=== PATIENT | male | born 1995 | race Caucasian/White ===

== ENCOUNTER 2016-06-22 05:07 | Inpatient (IN) | payer OTHER ==
--- NOTE | ~2016-06-22 | PA ---
Unit #: [id number] #: [id number] Patient: BHARTI HUANG [id number] [facility] [address] [place] [address] [id number] MR#: [id number] NAME: BHARTI HUANG. ROOM: P206 Age: 21 Sex: M Admission Date: 06/22/2016 : 1995 Date of Assessment: 06/22/2016 Attending Physician: Savita Martinez M.D. Admitting Physician: Savita Martinez M.D. Primary Care Physician: Generic Doctor Not In System PSYCHIATRIC ASSESSMENT DATE OF SERVICE 06/22/2016. IDENTIFYING DATA Mr. Huang is a 21-year-old single, transgender male himself as a female and was directly admitted to us from [place], [place]. CHIEF COMPLAINT Suicidal ideation and "I've a plan to kill myself." HISTORY OF PRESENT ILLNESS Mr. Huang is a 21-year-old transgender female with history of bipolar disorder, who was taken to the [place], [place] where initial assessment was completed. Upon presentation to the hospital, the patient stated that she has been depressed and has been having suicidal thoughts and has a plan to kill herself and "I've a history of mental disorders and suicide attempt and my plan to take sleeping pills and have them at home." She told her father that she needed to be taken to the emergency room and that she has been just really depressed. "I'm in one of my lows in the past 3 weeks and it has gotten worse." She was seen to be danger to self and as such, was medically cleared from the emergency room and then transferred to us. SUBSTANCE ABUSE HISTORY The patient denies any history of alcohol or drug. PAST PSYCHIATRIC HISTORY The patient has had history of inpatient psychiatric hospitalization at [facility] and review of the medical records indicate that currently she has not been seeing a psychiatrist, and has been diagnosed and treated for bipolar disorder, and has been on combination of psychotropic medications. PAST MEDICAL HISTORY The patient's medical history is insignificant. ALLERGIES Penicillin. PERSONAL AND SOCIAL HISTORY A 21-year-old transgender female who reports that she lives at home with her father and stepmother and has fairly decent social support system. Unit #: [id number] #: [id number] Patient: BHARTI HUANG MENTAL STATUS EXAMINATION Young white female who was casually dressed with fair personal hygiene, appears to be in no acute distress or discomfort. She was awake and alert on interaction with intact orientation to time, place, and person. Her mood was anxious and depressed with a congruent affect. Her speech was slow and restricted in content. Her thought processes were disorganized with some looseness of associations and suicidal ideations. Her insight and judgment remain significantly impaired. DIAGNOSTIC IMPRESSION Psychiatric: Bipolar disorder, most recent episode depressed, recurrent, moderate, without psychotic features. Medical: None. Stressors: Moderate psychosocial stressors. TREATMENT PLAN 1. The patient has presented with history of mood disorder and has been decompensating and will need inpatient hospitalization for safety and stabilization. We will start her back on her home medications. We will adjust the medications and monitor response. 2. Supportive therapy was provided to the patient. 3. Safe, structured, and nourishing environment will be provided. ESTIMATED LENGTH OF STAY 5 to 7 days. ABILITY TO HELP SELF Limited. WILLINGNESS TO HELP SELF The patient appears to be willing to help self. STRENGTHS 1. Communicative. 2. Cooperative. PROBLEMS 1. Chronic dysphoric symptoms. 2. Poor social support system. DISCHARGE CRITERIA This will be contingent upon the patient's ability to show of her depression and anxiety, and her ability to stay safe to herself, particularly after discharge from the hospital. Dictated by... Dez Rob/charles TD: 06/22/2016 16:29 JOB #: [id number] Unit #: [id number] #: [id number] Patient: BHARTI HUANG PSYCHIATRIC ASSESSMENT Page 1 of 1 X Savita Martinez MD X PSYCHIATRIC ASSESSMENT
--- NOTE | ~2016-06-22 | PN ---
Unit #: [id number] #: [id number] Patient: BHARTI HUANG [id number] [facility] [address] [place] [address] [id number] I MR#: [id number] NAME: BHARTI HUANG. ROOM: P206 Age: 21 Sex: M Admission Date: 06/22/2016 : 1995 Attending Physician: Savita Martinez M.D. Admitting Physician: Savita Martinez M.D. Primary Care Physician: Sharad Doctor Not In System [facility] PROGRESS NOTES DATE OF SERVICE: 06/22/2016 SUBJECTIVE Mr. Huang is a 21-year-old transgender female who was seen today and chart was reviewed, and case was discussed with the staff. He has been anxious, withdrawn, and rather seclusive to himself and has been hardly getting up , coming out, communicating, interacting, and participating in treatment-related activities. He does not really appear to be very much motivated towards treatment as evidenced by him not really investing in treatment recommendation. MENTAL STATUS EXAMINATION Young white male who was casually dressed with fair personal hygiene, appears to be in no acute distress or discomfort. He was awake and alert on interaction with intact orientation. His mood was anxious with a congruent affect. He denies any suicidal or homicidal ideations. His insight and judgment remain significantly impaired. TREATMENT PLAN 1. We will continue him on his current medications and treatment protocol. We will monitor his response to medications and make further adjustments as needed. 2. We will continue to follow up. Dictated by... Dez Rob/charles TD: 06/24/2016 21:30 JOB #: [id number] Unit #: [id number] #: [id number] Patient: BHARTI HUANG PROGRESS NOTES Page 1 of 1 X Savita Martinez MD PROGRESS NOTE
--- NOTE | ~2016-06-22 | HP ---
Unit #: [id number] #: [id number] Patient: BHARTI ROCKWELL [id number] [place] [address] [id number] I MR#: [id number] NAME: BHARTI ROCKWELL. ROOM: P206 Age: 21 Sex: M Admission Date: 06/22/2016 : 1995 Attending Physician: Savita Martinez M.D. Admitting Physician: Savita Martinez M.D. Primary Care Physician: Generic Doctor Not In System HISTORY AND PHYSICAL HISTORY OF PRESENT ILLNESS The patient is a 21-year-old male admitted to [address] [place] [address] on 06/22/2016 for suicidal ideation. PAST MEDICAL HISTORY Obesity. PAST SURGICAL HISTORY 1. Left knee. 2. Finger. ALLERGIES Penicillin. SOCIAL HISTORY He is a biological male but identifies as female. He is disabled, lives with father and stepmother. Denies alcohol, tobacco and drug use. FAMILY HISTORY Noncontributory. REVIEW OF SYSTEMS CONSTITUTIONAL: No fever or chills. HEENT: Denies any sore throat, ear pain or runny nose. CARDIOVASCULAR: Denies chest pain, irregular heart rhythm or palpitations. CHEST: Denies shortness of breath or cough. No hemoptysis. GASTROINTESTINAL: Denies nausea, vomiting, diarrhea or chronic constipation. ENDOCRINE: Denies history of increased thirst or urination. No recent significant weight loss or gain. GENITOURINARY: Denies dysuria, frequency, or hematuria. SKIN: Denies any rashes. HEMATOLOGIC: Denies history of increased bleeding or bruising. MUSCULOSKELETAL: Denies any hot, swollen joints. No generalized muscle pain. NEUROLOGIC: Denies problems with vision or speech. No frequent, severe headaches. No numbness, tingling or weakness in any extremities. Denies loss of bladder or bowel control. CURRENT MEDICATIONS 1. Tenex. 2. Klonopin. 3. Winlock. Unit #: [id number] #: [id number] Patient: BHARTI ROCKWELL 4. Depakote. 5. Geodon. 6. Doxepin. 7. Proventil. PHYSICAL EXAMINATION GENERAL: He is awake, alert, oriented, in no acute distress. VITAL SIGNS: Temperature 97.9, heart rate 93, respirations 18, blood pressure 126/79. SKIN: Warm and dry without rash or lesion. HEENT: Normocephalic. TMs not viewed. Oral and nasal passages clear. Conjunctivae clear. PERRLA. EOMs intact. NECK: Supple without lymphadenopathy or thyromegaly. HEART: Regular rate and rhythm without murmur. LUNGS: Clear. ABDOMEN: Soft, nontender. : Not done. EXTREMITIES: No evidence of cyanosis, clubbing or edema. Moves all without focal deficit. NEUROLOGICAL: Grossly within normal limits. Cranial Nerves: II: Visual frank are intact. III, IV AND : Extraocular movements are intact. Pupils are equal, round and reactive to light. V: Facial sensation is grossly normal. VII: Facial movements and expression are normal. VIII: Auditory acuity grossly intact. IX, X: Uvula is midline. Phonation is normal. XI: Patient shrugs shoulders and turns head normally. XII: Tongue protrudes in the midline. Sensory and Motor Function: Sensory and motor sensation is grossly normal. Motor: moves all extremities well. Coordination: Gait is normal. Deep Tendon Reflexes: Intact. IMPRESSION 1. Psychiatric admission. 2. Obesity. RECOMMENDATIONS PSYCHIATRIC: Per psychiatrist. MEDICAL: No contraindications to participate in facility's activities. MEDICAL PROGNOSIS Good. MEDICAL CONDITION Stable. Dictated by... Oswaldo Mcclure/elaina TD: 06/22/2016 20:50 JOB #: [id number] Unit #: [id number] #: [id number] Patient: BHARTI ROCKWELL HISTORY AND PHYSICAL Page 1 of 1 X RADHA EM APRN HISTORY AND PHYSICAL
--- NOTE | ~2016-06-22 | DS ---
Unit #: [id number] #: [id number] [facility]: [facility]WELL [id number] [facility] [address] [place] [address] [id number] I MR#: [id number] NAME: BHARTI ROCKWELL ROOM: P206 Age: 21 Sex: M Admission Date: 06/22/2016 : 1995 Discharge Date: 06/25/2016 Attending Physician: Savita Martinez M.D. Primary Care Physician: Generic Doctor Not In System DISCHARGE SUMMARY IDENTIFYING DATA Mr. Rockwell is a 21-year-old single transgender male, who identifying himself as a female and was directly transferred to us from [place], [place]. DISCHARGE DIAGNOSES Psychiatric: Bipolar disorder, most recent episode depressed, recurrent, moderate, without psychotic features. Medical: None. Stressors: Moderate psychosocial stressors. HISTORY OF PRESENT ILLNESS Please see initial psychiatric evaluation for details. PAST PSYCHIATRIC HISTORY Please see initial psychiatric evaluation for details. PAST MEDICAL HISTORY Please see initial psychiatric evaluation for details. HOSPITAL COURSE The patient was admitted to the adult psychiatric unit at [facility] and was oriented to the hospital environment. Routine p.r.n. medications were initiated and he was started back on his home medications and medications were adjusted, and Depakote and lithium were maintained and Geodon was increased to 60 mg b.i.d. with good tolerability and therapeutic response. He was seen to be rather very seclusive to himself, though was calm and cooperative and was taking medications regularly and it appears that his Depakote and lithium level were both low as lithium level of 0.2 and Depakote level of 27 indicating that he was noncompliant with medications and medication therefore restarted and he was able to show a decent therapeutic response with improvement in depression and anxiety and was willing to continue treatment on an outpatient basis and as such, it was decided that he will be discharged home and will continue treatment on an outpatient basis. DISCHARGE MEDICATIONS Geodon 60 mg b.i.d. for bipolar, Depakote 500 mg in the morning and 1000 mg at bedtime for bipolar, Eskalith CR 450 mg b.i.d. for bipolar. DISCHARGE CONDITION Stable. PROGNOSIS Unit #: [id number] #: [id number] Patient: BHARTI ROCKWELL. Dictated by... Dez Rob/charles TD: 06/25/2016 07:29 JOB #: [id number] DISCHARGE SUMMARY Page 1 of 1 X Savita Martinez MD X DISCHARGE SUMMARY
--- NOTE | ~2016-06-22 | PN ---
Unit #: [id number] #: [id number] Patient: BHARTI HUANG [id number] [facility] [address] [place] [address] [id number] MR#: [id number] NAME: BHARTI HUANG. ROOM: P206 Age: 21 Sex: M Admission Date: 06/22/2016 : 1995 Attending Physician: Savita Martinez M.D. Admitting Physician: Savita Martinez M.D. Primary Care Physician: Sharad Doctor Not In System [facility] PROGRESS NOTES DATE June 23, 2016 DISCUSSION Mr. Huang is a 21-year-old transgender male, who was seen today and chart was reviewed and the case was discussed with the staff. He has been anxious, withdrawn, and father seclusive to himself. Meanwhile, he has been cooperative with the treatment recommendations and he has been taking the medications and tolerating them fairly well with no reported side effects. MENTAL STATUS EXAMINATION Young white male, who was casually dressed with fair personal hygiene and appears to be in no acute distress or discomfort. He was awake and alert on interaction with intact orientation. His mood is anxious with a congruent affect. He denies any suicidal or homicidal ideations. His insight and judgment remain slightly impaired. TREATMENT PLAN 1. We will continue him on his current medications and treatment protocol, and will monitor his response to the medications, and make further adjustments as needed. 2. We will continue to followup. Dictated by... Dez Rob/toña TD: 06/24/2016 06:37 JOB #: [id number] Unit #: [id number] #: [id number] Patient: BHARTI HUANG [facility] PROGRESS NOTES Page 1 of 1 X Savita Martinez MD PROGRESS NOTE
[2016-06-23 11:04] LABS: BASOPHIL% 0.6 % (0-2.5); EOSINOPHIL# 0.3 X10e3 (0-0.7); EOSINOPHIL% 3.2 % (0.0-7.0); HEMATOCRIT 41.8 % (38.0-50.0); HEMOGLOBIN 13.8 gm/dL (13.0-16.0); MEAN CELL VOLUME 86.8 FL (83-96); MEAN CORPUSCULAR HEMOGLOBIN 28.7 PG (28-34); MEAN PLATELET VOLUME 9.6 FL (6.5-11.5); MONOCYTE# 0.6 X10e3 (0-1.0); MONOCYTE% 7.1 % (3.0-12.0); NEUTROPHIL# 4.2 X10e3 (1.5-7.1); NEUTROPHIL% 52.1 % (40-75); PLATELET COUNT 195 X10e3 (140-420); RED BLOOD COUNT 4.81 X10e (3.90-5.60); RED CELL DISTRIBUTION WIDTH 13.6 % (11.0-15.5)
[2016-06-23 11:16] LABS: DIFF IND NO
[2016-06-23 12:09] LABS: CALCIUM SERUM 9.1 mg/dL (8.4-10.2); POTASSIUM 4.3 mmol/L (3.5-5.1)
[2016-06-23 12:18] LABS: ALBUMIN SERUM 3.9 g/dL (3.5-5.0); BILIRUBIN,TOTAL 0.7 mg/dL (0.2-2.0); BUN/CREATININE RATIO 16.25; CREATININE SERUM 0.8 mg/dL (0.6-1.4); GLOM FILT RATE Estimated 126.9 mL/min (>60); PROTEIN TOTAL SERUM 6.8 g/dL (6.0-8.3)
== END 2016-06-25 09:50 | disposition home or self-care (01) | DRG 885 ==
LOC: P2S 05:07
PROVIDERS: Psychiatry & Neurology Psychiatry
DX: F31.32 Bipolar disorder, current episode depressed, moderate (principal); R45.851 Suicidal ideations; Z68.42 Body mass index [BMI] 45.0-49.9, adult; Z88.0 Allergy status to penicillin; E66.9 Obesity, unspecified
CPT/HCPCS: 80053; 80164; 80178; 85025